=== PATIENT | female | born 1985 | race Caucasian/White ===

== ENCOUNTER → 2019-06-10 | Outpatient (CLI) | payer SELFPAY ==
[~2019-06-10] MED LIST: ANTIDEPRESSANT; FLEXERIL 1010 MG/TAB PO; LORTAB 5/500 501 TAB PO; MOTRIN 800800 MG/TAB PO; ULTRAM 50MG TAB50 MG PO
== END ==
LOC: COL.RAD 12:00
DX: M47.816 Spondylosis without myelopathy or radiculopathy, lumbar region (principal); G44.89 Other headache syndrome

== ENCOUNTER 2020-02-07 15:43 | Emergency (ER) | payer BC ==
[~2020-02-07] VITALS: Ht 165.1 cm; Wt 72.7 kg
[2020-02-07 15:48] VITALS: BP 117/86; TEMP 98.5
[2020-02-07] MEDS ORDERED: FLEXERIL 1010 MG/TAB PO (16:34)
[2020-02-07 16:41] VITALS: PULSE 88
== END 2020-02-07 16:41 | disposition home or self-care (01) ==
LOC: COL.ER 15:43
DX: M62.830 Muscle spasm of back (principal); F41.9 Anxiety disorder, unspecified; G47.00 Insomnia, unspecified; F17.200 Nicotine dependence, unspecified, uncomplicated; Z88.8 Allergy status to other drugs, medicaments and biological substances
CPT/HCPCS: J1885

== ENCOUNTER 2020-04-05 20:47 | Emergency (ER) | payer BC ==
[~2020-04-05] VITALS: Ht 165.1 cm; Wt 68.2 kg
[2020-04-05 21:45] VITALS: TEMP 97.7
[2020-04-05] MEDS ORDERED: NAPROSYN500 MG PO (23:50)
[2020-04-06 00:05] VITALS: BP 110/78; PULSE 90
== END 2020-04-06 00:10 | disposition home or self-care (01) ==
LOC: COL.ER 20:47
DX: S20.20XA Contusion of thorax, unspecified, initial encounter (principal); S00.93XA Contusion of unspecified part of head, initial encounter; M54.5 Low back pain; F17.200 Nicotine dependence, unspecified, uncomplicated; Z90.710 Acquired absence of both cervix and uterus; Z88.8 Allergy status to other drugs, medicaments and biological substances; W10.8XXA Fall (on) (from) other stairs and steps, initial encounter; Y93.01 Activity, walking, marching and hiking